=== PATIENT | female | born 1950 | race Caucasian/White ===

== ENCOUNTER 2020-12-15 11:54 | Day surgery (SDC) | payer MEDICARE, OTHER ==
[~2020-12-15] VITALS: Ht 149.9 cm; Wt 60.1 kg
[~2020-12-15 11:54] MED LIST: ALPR.5 PO; FLONASE ALLERG9.9 M2; GABA100 PO; LISI5 PO; OMEP20ER PO; OXYACE10 PO; PROP60 PO; SUCR1 PO; VENL150ER PO
[2020-12-15] MEDS ORDERED: Inderal60 MG PO (12:44)
--- NOTE | 2020-12-15 13:12 | NUR ---
12/15/20 1312 MANDIE KIM TETRACAINE DROP IN AT 1241 PLEDGETT IN AT 1249 ORDERED. 1311 L EYE DIALATING VERY WELL. LJ,RN
[2021-01-03] MEDS ORDERED: Prinivil10 MG PO (13:03)
== END 2020-12-15 14:25 | disposition home or self-care (01) ==
LOC: ORSCSDS 11:54
PROVIDERS: Ophthalmology
PROC: 08RK3JZ Replacement of Left Lens with Synthetic Substitute, Percutaneous Approach (ICD-10-PCS; principal; 2020-12-15 13:30)
DX: H25.12 Age-related nuclear cataract, left eye (principal); I10 Essential (primary) hypertension; G47.33 Obstructive sleep apnea (adult) (pediatric); K21.9 Gastro-esophageal reflux disease without esophagitis; Z79.899 Other long term (current) drug therapy
CPT/HCPCS: J2001; J2250; J3301; J7040; V2632

== ENCOUNTER 2021-01-12 11:44 | Day surgery (SDC) | payer MEDICARE, OTHER ==
[~2021-01-12] VITALS: Ht 149.9 cm; Wt 60.2 kg
[~2021-01-12 11:44] MED LIST changes: +Inderal60 MG PO; +Prinivil10 MG PO
--- NOTE | 2021-01-12 12:09 | NUR ---
01/12/21 1209 Ann-Marie Wise TETRACAINE APPLIED AT 1203 AND PLEDGET APPLIED AT 1206 TO RIGHT EYE
== END 2021-01-12 13:40 | disposition home or self-care (01) ==
LOC: ORSCSDS 11:44
PROVIDERS: Ophthalmology
PROC: 08RJ3JZ Replacement of Right Lens with Synthetic Substitute, Percutaneous Approach (ICD-10-PCS; principal; 2021-01-12 13:00)
DX: H25.11 Age-related nuclear cataract, right eye (principal); I10 Essential (primary) hypertension; J44.9 Chronic obstructive pulmonary disease, unspecified; K21.9 Gastro-esophageal reflux disease without esophagitis; Z99.81 Dependence on supplemental oxygen; G47.33 Obstructive sleep apnea (adult) (pediatric); F17.210 Nicotine dependence, cigarettes, uncomplicated; Z79.899 Other long term (current) drug therapy
CPT/HCPCS: J2001; J2250; J3010; J3301; J7040; V2632

== ENCOUNTER → 2021-04-19 | Outpatient (CLI) | payer MEDICARE, OTHER | END | disposition home or self-care (01) | LOC: LAB SHORT 14:45 | DX: N30.00 Acute cystitis without hematuria (principal) | CPT/HCPCS: 87086 ==

== ENCOUNTER 2021-06-19 13:15 | Observation (INO) | payer MEDICARE, OTHER ==
[~2021-06-19] VITALS: Ht 149.9 cm; Wt 61.6 kg
[~2021-06-19 13:15] MED LIST changes: +LISI20 PO; -Prinivil10 MG PO
[2021-06-19 13:51] LABS: BASOPHILS ABSOLUTE AUTO 0.03 K/mm3 (0.00-0.23); BASOPHILS PERCENT AUTO 0 % (0-2); EOSINOPHILS ABSOLUTE AUTO 0.06 K/mm3 (0.00-0.68); EOSINOPHILS PERCENT AUTO 1 % (0-6); Hematocrit 46.3 % (33.0-51.0); IMMATURE GRAN ABSOLUTE AUTO 0.03 K/mm3 (0.00-0.10); IMMATURE GRAN PERCENT AUTO 0 % (0-1); LYMPHOCYTES ABSOLUTE AUTO 2.66 K/mm3 (0.84-5.20); LYMPHOCYTES PERCENT AUTO 33 % (21-46); MONOCYTES ABSOLUTE AUTO 0.58 K/mm3 (0.16-1.47); MONOCYTES PERCENT AUTO 7 % (4-13); Mean Corpuscular HGB 31.1 pg (26.0-34.0); Mean Corpuscular HGB Conc 32.4 g/dL (31.5-36.5); Mean Corpuscular Volume 96 fL (80-100); Mean Platelet Volume 9.6 fL (9.1-12.4); NEUTROPHILS ABSOLUTE AUTO 4.83 K/mm3 (1.96-9.15); NEUTROPHILS PERCENT AUTO 59 % (41-73); Platelet Count 213 K/mm3 (150-400); RDW Coefficient Variation 14.3 % (11.7-14.2); RDW Standard Deviation 50.2 fL (35.1-46.3); Red Blood Cell Count 4.83 M/mm3 (3.80-5.20); White Blood Cell Count 8.19 K/mm3 (4.00-11.30)
[2021-06-19 14:13] LABS: Alanine Aminotransfer (ALT/SGP 18 U/L (12-78); Albumin, Blood 3.6 g/dL (3.4-5.0); Albumin/Globulin Ratio 0.9 (0.8-1.8); Alk Phos 70 U/L (50-136); Anion Gap 6 mmol/L (6-16); Aspartate Aminotrans (AST/SGOT 13 U/L (12-37); Bilirubin, Total 0.3 mg/dL (0.1-1.0); Blood Urea Nitrogen 17 mg/dL (8-24); Bun/Creatinine Ratio 20.5 (12.0-20.0); CO2, Blood 26 mmol/L (21-32); Calcium, Blood 9.2 mg/dL (8.5-10.1); Chloride, Blood 112 mmol/L (98-108); Creatinine, Blood 0.83 mg/dL (0.40-1.00); Globulin, Blood 3.8 g/dL (2.2-4.0); Glomerular Filtration Rate >60 (60-); Glucose, Blood 117 mg/dL (70-99); Potassium, Blood 4.3 mmol/L (3.5-5.5); Sodium, Blood 144 mmol/L (136-145); Total Protein, Blood 7.4 g/dL (6.4-8.2)
[2021-06-19 15:36] LABS: CHOL/HDL RATIO 2.7; Cholesterol 167 mg/dL (50-200); HDL Cholesterol 61 mg/dL (>39); LDL/HDL RATIO 0.9; Low Density Lipoprotein Chol 54 mg/dL (0-110); Triglycerides 260 mg/dL (30-160); Very Low Density Lipoprot Chol 52 mg/dL (6-32)
--- NOTE | 2021-06-19 18:07 | NUR ---
PT ARRIVED IN THE UNIT VIA STRETCHER FROM ED, REPORT RECEIVED FROM SEKOU EDUARDO. PT WAS ABLE TO STAND TRANSFER TO BED SBA. PT IS ALERT AND ORIENTED X4 AT BASELINE. HRR 110 SINUS TACH PER TELE. BP SYSTOLIC 170-180'S EXTRA 10MG DOSE ADMINSITERED, SATS ABOVE 95% ON RA, AFEBRILE. PT C/O 03/10 HEADACHE WAS GIVEN EXTRA [address] RILEY MADE AWARE. PT PUPILS DILATED FROM EYE DROPS MEDS FROM OPTHALMOLOGY OFFICE. PT NOW RESTING IN BED CALL LIGHTS IN REACH, CURRENTLY EATING DINNER. ABLE TO MAKE NEEDS KNOWN WILL REPORT TO ONCOMING SHIFT
--- NOTE | 2021-06-19 22:46 | NUR ---
ASSUMED CARE OF PATIENT AT 1900. A/OX4. PATIENT REPORTS H/A THAT SHE'S HAD SINCE THE ER. 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 ALL OTHER NEURO'S INTACT. MAINTAINS ABOVE 95% ON RA, LS CLEAR ON TOP AND DIM AT BASES. SINUS TACH ON MONITOR 110'S WITH STRONG PULSES. BP SYSTOLIC 150'S, NO REPORTS OF CP. WILL UPDATE CHANGES OCCUR.
[2021-06-20] MEDS ORDERED: ATOR40TA PO (13:12)
[2021-06-20] MEDS ORDERED: ASPI81CH PO (13:12)
--- NOTE | 2021-06-20 13:38 | NUR ---
DISCHARGE HOME PT A&O X4. PT REPORTS R EYE PERIPHERAL VISION STILL ABSENT, SAYING "I LOST IT" WHEN ATTEMPTING TO TRACK FINGER MOVING FROM LEFT TO RIGHT IN FRONT OF HER. PT UNABLE TO SEE FINGER WHEN TO THE RIGHT OF THE PT. PT C/O HEADACHE, IMPROVED W/ PRN IV TORADOL X1 THIS SHIFT. PT C/O NAUSEA W/ EPISODE OF EMESIS X2 THIS SHIFT, IMPROVED W/ PRN IV ZOFRAN THIS SHIFT & 1 PO REGLAN GIVEN JUST BEFORE DISCHARGE. PT VSS. PT TOLERATING AMBULATING IN HALLWAY W/ FWW & RN WELL. PT EAGER TO DISCHARGE HOME, REPORTING ABILITY TO STAY WITH FAMILY OR FAMILY STAY WITH HER. PT DAUGHTER TO UNIT TO TAKE PT HOME. DISCHARGE INSTRUCTIONS REVIEWED W/ PT. PIV REMOVED. PT TAKEN OUT IN WHEELCHAIR BY RN W/ PT DAUGHTER & BELONGINGS @ APPROX 1330.
--- NOTE | 2021-06-20 13:44 | NUR ---
Patient is sitting up in bed and alert. Pt tells me that she is improving but the whole medical event was scary and leaves a bit fearful about the future. We discuss her solid family support system of her 5 grown children and their families but she then shares about the deep pain of the divorce of her marriage of 40 yrs. She states that she is not hoahaoism but finds her drive and inspiration from family. I provide therapeutic listening and comapnioship, a calming presence and gentle marriage counselor. Patient responds well and shows signs of being comforted and having reduced stress.
== END 2021-06-20 13:52 | disposition home or self-care (01) ==
LOC: ER 13:15 → ERHOLD 13:16 → ER 13:16 → ERHOLD 13:17 → PCU 13:17 → ERHOLD 15:55 → PCU 16:47
PROVIDERS: Physician Assistant; ADMIT Family Medicine
DX: I63.9 Cerebral infarction, unspecified (principal); H53.8 Other visual disturbances; H53.47 Heteronymous bilateral field defects; R47.81 Slurred speech; H35.60 Retinal hemorrhage, unspecified eye; I16.1 Hypertensive emergency; I10 Essential (primary) hypertension; K21.9 Gastro-esophageal reflux disease without esophagitis; F32.A Depression, unspecified; F17.210 Nicotine dependence, cigarettes, uncomplicated; Z88.1 Allergy status to other antibiotic agents; Z66 Do not resuscitate
CPT/HCPCS: 36415; 70450; 70496; 70498; 80053; 80061; 84443; 85025; 85651; 86140; 93005; 93010; 93306; 96372; 96374; 96375; 96376; 99285-25; A9270; G0378; J0360; J1170; J1650; J1885; J2405; J3010; Q9967

== ENCOUNTER 2021-07-01 14:17 | Emergency (ER) | payer MEDICARE, OTHER ==
[~2021-07-01] VITALS: Ht 149.9 cm; Wt 59.0 kg
[~2021-07-01 14:17] MED LIST changes: +ASPI81CH PO; +ATOR40TA PO
[2021-07-01 15:25] LABS: BASOPHILS ABSOLUTE AUTO 0.05 K/mm3 (0.00-0.23); BASOPHILS PERCENT AUTO 0 % (0-2); EOSINOPHILS ABSOLUTE AUTO 0.01 K/mm3 (0.00-0.68); EOSINOPHILS PERCENT AUTO 0 % (0-6); Hematocrit 43.3 % (33.0-51.0); Hemoglobin 14.7 g/dL (11.5-16.0); IMMATURE GRAN ABSOLUTE AUTO 0.08 K/mm3 (0.00-0.10); IMMATURE GRAN PERCENT AUTO 1 % (0-1); LYMPHOCYTES ABSOLUTE AUTO 1.86 K/mm3 (0.84-5.20); LYMPHOCYTES PERCENT AUTO 11 % (21-46); MONOCYTES ABSOLUTE AUTO 0.96 K/mm3 (0.16-1.47); MONOCYTES PERCENT AUTO 6 % (4-13); Mean Corpuscular HGB 31.7 pg (26.0-34.0); Mean Corpuscular HGB Conc 33.9 g/dL (31.5-36.5); Mean Corpuscular Volume 94 fL (80-100); Mean Platelet Volume 9.6 fL (9.1-12.4); NEUTROPHILS ABSOLUTE AUTO 13.71 K/mm3 (1.96-9.15); NEUTROPHILS PERCENT AUTO 82 % (41-73); Platelet Count 244 K/mm3 (150-400); RDW Coefficient Variation 14.5 % (11.7-14.2); RDW Standard Deviation 49.8 fL (35.1-46.3); Red Blood Cell Count 4.63 M/mm3 (3.80-5.20); White Blood Cell Count 16.67 K/mm3 (4.00-11.30)
[2021-07-01 16:04] LABS: Influenza A, PCR NEGATIVE (NEGATIVE); Influenza B, PCR NEGATIVE (NEGATIVE); Resp Syncytial Virus, PCR NEGATIVE (NEGATIVE); SARS-Cov-2 (COVID-19) PCR, MMC NEGATIVE (NEGATIVE)
[2021-07-01 16:19] LABS: Alanine Aminotransfer (ALT/SGP 14 U/L (12-78); Albumin, Blood 3.6 g/dL (3.4-5.0); Albumin/Globulin Ratio 0.9 (0.8-1.8); Alk Phos 73 U/L (50-136); Anion Gap 7 mmol/L (6-16); Aspartate Aminotrans (AST/SGOT 15 U/L (12-37); Bilirubin, Total 0.7 mg/dL (0.1-1.0); Blood Urea Nitrogen 16 mg/dL (8-24); Bun/Creatinine Ratio 21.7 (12.0-20.0); CO2, Blood 22 mmol/L (21-32); Chloride, Blood 110 mmol/L (98-108); Creatinine, Blood 0.74 mg/dL (0.40-1.00); Globulin, Blood 3.9 g/dL (2.2-4.0); Glomerular Filtration Rate >60 (60-); Glucose, Blood 106 mg/dL (70-99); Potassium, Blood 3.8 mmol/L (3.5-5.5); Sodium, Blood 139 mmol/L (136-145); Total Protein, Blood 7.5 g/dL (6.4-8.2)
[2021-07-01] MEDS ORDERED: AUGMENTIN 875-1 EACH PO (16:53)
== END 2021-07-01 17:47 | disposition home or self-care (01) ==
LOC: ER 14:17
PROVIDERS: Physician Assistant
DX: J18.9 Pneumonia, unspecified organism (principal); I10 Essential (primary) hypertension; J44.9 Chronic obstructive pulmonary disease, unspecified; K21.9 Gastro-esophageal reflux disease without esophagitis; Z88.1 Allergy status to other antibiotic agents; Z79.82 Long term (current) use of aspirin; Z79.899 Other long term (current) drug therapy
CPT/HCPCS: 0241U; 36415; 71045; 80053; 85025; 96365; 99283-25; A9270; J2543

== ENCOUNTER 2022-01-15 21:17 | Observation (INO) | payer MEDICARE, OTHER ==
[~2022-01-15] VITALS: Ht 149.9 cm; Wt 63.4 kg
[~2022-01-15 21:17] MED LIST changes: +AUGMENTIN 875-1 EACH PO
[2022-01-15] MEDS ORDERED: OMEP20ER PO (21:35)
[2022-01-15 21:38] LABS: BASOPHILS ABSOLUTE AUTO 0.02 K/mm3 (0.00-0.23); BASOPHILS PERCENT AUTO 0 % (0-2); EOSINOPHILS ABSOLUTE AUTO 0.02 K/mm3 (0.00-0.68); EOSINOPHILS PERCENT AUTO 0 % (0-6); Hematocrit 43.5 % (33.0-51.0); Hemoglobin 14.5 g/dL (11.5-16.0); IMMATURE GRAN ABSOLUTE AUTO 0.05 K/mm3 (0.00-0.10); IMMATURE GRAN PERCENT AUTO 1 % (0-1); LYMPHOCYTES ABSOLUTE AUTO 0.27 K/mm3 (0.84-5.20); LYMPHOCYTES PERCENT AUTO 3 % (21-46); MONOCYTES ABSOLUTE AUTO 0.82 K/mm3 (0.16-1.47); MONOCYTES PERCENT AUTO 9 % (4-13); Mean Corpuscular HGB Conc 33.3 g/dL (31.5-36.5); Mean Corpuscular Volume 93 fL (80-100); Mean Platelet Volume 10.2 fL (9.1-12.4); NEUTROPHILS ABSOLUTE AUTO 7.55 K/mm3 (1.96-9.15); NEUTROPHILS PERCENT AUTO 87 % (41-73); Platelet Count 191 K/mm3 (150-400); RDW Coefficient Variation 14.4 % (11.7-14.2); RDW Standard Deviation 48.8 fL (35.1-46.3); Red Blood Cell Count 4.68 M/mm3 (3.80-5.20); White Blood Cell Count 8.73 K/mm3 (4.00-11.30)
[2022-01-15 21:52] LABS: Albumin, Blood 3.8 g/dL (3.4-5.0); Albumin/Globulin Ratio 1.1 (0.8-1.8); Bilirubin, Total 0.3 mg/dL (0.1-1.0); Bun/Creatinine Ratio 23.3 (12.0-20.0); Calcium, Blood 9.1 mg/dL (8.5-10.1); Creatinine, Blood 0.82 mg/dL (0.40-1.00); Globulin, Blood 3.6 g/dL (2.2-4.0); Total Protein, Blood 7.4 g/dL (6.4-8.2)
[2022-01-15 22:07] LABS: Influenza A, PCR NEGATIVE (NEGATIVE); Influenza B, PCR NEGATIVE (NEGATIVE); Resp Syncytial Virus, PCR NEGATIVE (NEGATIVE)
[2022-01-15 22:19] LABS: SARS-Cov-2 (COVID-19) PCR, MMC POSITIVE (NEGATIVE)
[2022-01-16 02:09] LABS: BASOPHILS ABSOLUTE AUTO 0.02 K/mm3 (0.00-0.23); BASOPHILS PERCENT AUTO 0 % (0-2); EOSINOPHILS ABSOLUTE AUTO 0.01 K/mm3 (0.00-0.68); EOSINOPHILS PERCENT AUTO 0 % (0-6); Hematocrit 40.8 % (33.0-51.0); Hemoglobin 13.5 g/dL (11.5-16.0); IMMATURE GRAN ABSOLUTE AUTO 0.03 K/mm3 (0.00-0.10); IMMATURE GRAN PERCENT AUTO 0 % (0-1); LYMPHOCYTES ABSOLUTE AUTO 0.23 K/mm3 (0.84-5.20); LYMPHOCYTES PERCENT AUTO 3 % (21-46); MONOCYTES ABSOLUTE AUTO 0.39 K/mm3 (0.16-1.47); MONOCYTES PERCENT AUTO 6 % (4-13); Mean Corpuscular HGB 31.3 pg (26.0-34.0); Mean Corpuscular HGB Conc 33.1 g/dL (31.5-36.5); Mean Corpuscular Volume 94 fL (80-100); Mean Platelet Volume 9.9 fL (9.1-12.4); NEUTROPHILS ABSOLUTE AUTO 6.37 K/mm3 (1.96-9.15); NEUTROPHILS PERCENT AUTO 90 % (41-73); Platelet Count 173 K/mm3 (150-400); RDW Coefficient Variation 14.5 % (11.7-14.2); RDW Standard Deviation 50.2 fL (35.1-46.3); Red Blood Cell Count 4.32 M/mm3 (3.80-5.20); White Blood Cell Count 7.05 K/mm3 (4.00-11.30)
[2022-01-16 02:23] LABS: Bun/Creatinine Ratio 23.3 (12.0-20.0); Calcium, Blood 8.3 mg/dL (8.5-10.1); Creatinine, Blood 0.77 mg/dL (0.40-1.00); Potassium, Blood 4.2 mmol/L (3.5-5.5)
--- NOTE | 2022-01-16 04:20 | NUR ---
ADMIT NOTE 0232 PT BROUGHT FROM THE ED. PT PLEASANT AND COOPERATIVE WITH CARE. PT INDEPENDENT IN ROOM. PT ON 4 L 02 WITH SATS IN THE 90'S. PT ALERT AND ORIENTED. PT COVID POSITIVE AND WEARS OXYGEN AT HOME NEEDED. PT ON TELEMETRY. CALL LIGHT IS WITHIN HER REACH.
[2022-01-16] MEDS ORDERED: CEFU500T30 PO (14:39)
[2022-01-16] MEDS ORDERED: PRED20 PO (14:40)
[2022-01-16] MEDS ORDERED: Nicoderm Cq1 EAC1 TOP (14:52)
--- NOTE | 2022-01-16 16:04 | NUR ---
DC HOME. PT DC'D TO HOME. NEW SCRIPTS FAXED TO PT'S PREFERRED PHARM, [facility]. DC INSTRUCTIONS GIVEN TO PT, PT VERBALIZED GOOD UNDERSTANDING. PCP FOLLOW UP APPT ARRANGED PRIOR TO DC. PT MADE AWARE. PIV DC'D WITH CATH TIP INTACT. SITE WITH NO REDNESS OR SWELLING. ALL PERSONAL BELONGINGS SENT WITH PT. PT'S GRAND DAUGHTER TO DRIVE PT HOME.
== END 2022-01-16 15:58 | disposition home or self-care (01) ==
LOC: ER 21:17 → MEDS 21:18 → ER 01-16 01:55 → MEDS 01-16 01:55
PROVIDERS: Student in an Organized Health Care Education/Training Program; ADMIT Family Medicine
DX: U07.1 COVID-19 (principal); J96.21 Acute and chronic respiratory failure with hypoxia; J44.1 Chronic obstructive pulmonary disease with (acute) exacerbation; J44.0 Chronic obstructive pulmonary disease with (acute) lower respiratory infection; J18.9 Pneumonia, unspecified organism; I10 Essential (primary) hypertension; F17.210 Nicotine dependence, cigarettes, uncomplicated; Z88.1 Allergy status to other antibiotic agents; K21.9 Gastro-esophageal reflux disease without esophagitis; R00.0 Tachycardia, unspecified; Z66 Do not resuscitate; Z86.73 Personal history of transient ischemic attack (TIA), and cerebral infarction without residual deficits
CPT/HCPCS: 0241U; 36415; 71045; 80048; 80053; 83605; 84145; 85025; 93005; 93010; 96365; 96375; 99285-25; A9270; G0378; J0248; J0696; J1100; J1650; J1885; J2765; J7030; J7050

== ENCOUNTER 2022-10-20 12:09 | Emergency (ER) | payer MEDICARE, OTHER ==
[~2022-10-20] VITALS: Ht 165.1 cm; Wt 63.5 kg
[~2022-10-20 12:09] MED LIST changes: +CEFU500T30 PO; +Nicoderm Cq1 EAC1 TOP; +PRED20 PO
[2022-10-20 13:29] LABS: BASOPHILS ABSOLUTE AUTO 0.04 K/mm3 (0.00-0.23); BASOPHILS PERCENT AUTO 0 % (0-2); EOSINOPHILS ABSOLUTE AUTO 0.12 K/mm3 (0.00-0.68); EOSINOPHILS PERCENT AUTO 1 % (0-6); Hematocrit 46.4 % (33.0-51.0); Hemoglobin 15.7 g/dL (11.5-16.0); IMMATURE GRAN ABSOLUTE AUTO 0.03 K/mm3 (0.00-0.10); IMMATURE GRAN PERCENT AUTO 0 % (0-1); LYMPHOCYTES ABSOLUTE AUTO 1.43 K/mm3 (0.84-5.20); LYMPHOCYTES PERCENT AUTO 15 % (21-46); MONOCYTES ABSOLUTE AUTO 0.63 K/mm3 (0.16-1.47); MONOCYTES PERCENT AUTO 7 % (4-13); Mean Corpuscular HGB 31.5 pg (26.0-34.0); Mean Corpuscular HGB Conc 33.8 g/dL (31.5-36.5); Mean Corpuscular Volume 93 fL (80-100); Mean Platelet Volume 10.3 fL (9.1-12.4); NEUTROPHILS ABSOLUTE AUTO 7.19 K/mm3 (1.96-9.15); NEUTROPHILS PERCENT AUTO 76 % (41-73); Platelet Count 229 K/mm3 (150-400); Red Blood Cell Count 4.99 M/mm3 (3.80-5.20); White Blood Cell Count 9.44 K/mm3 (4.00-11.30)
[2022-10-20 13:44] LABS: Albumin, Blood 3.9 g/dL (3.4-5.0); Bilirubin, Total 0.4 mg/dL (0.1-1.0); Bun/Creatinine Ratio 25.3 (12.0-20.0); Calcium, Blood 9.2 mg/dL (8.5-10.1); Creatinine, Blood 0.71 mg/dL (0.40-1.00); Globulin, Blood 3.8 g/dL (2.2-4.0); Potassium, Blood 3.9 mmol/L (3.5-5.5); Total Protein, Blood 7.7 g/dL (6.4-8.2)
[2022-10-20 14:15] VITALS: BP 187/95
== END 2022-10-20 14:24 | disposition home or self-care (01) ==
LOC: ER 12:09
PROVIDERS: Student in an Organized Health Care Education/Training Program
DX: I63.9 Cerebral infarction, unspecified (principal); R47.01 Aphasia; R29.810 Facial weakness; G81.91 Hemiplegia, unspecified affecting right dominant side; I69.322 Dysarthria following cerebral infarction; R29.704 NIHSS score 4; I10 Essential (primary) hypertension; J44.9 Chronic obstructive pulmonary disease, unspecified; K21.9 Gastro-esophageal reflux disease without esophagitis; F17.210 Nicotine dependence, cigarettes, uncomplicated; Z88.1 Allergy status to other antibiotic agents; Z79.82 Long term (current) use of aspirin; Z79.899 Other long term (current) drug therapy
CPT/HCPCS: 36415; 70450; 70496; 70498; 80053; 82947; 85025; 93005; 93010; 99285-25; A9270; Q9967

== ENCOUNTER 2024-01-25 10:19 | Emergency (ER) | payer MEDICARE, OTHER ==
[~2024-01-25] VITALS: Ht 149.9 cm; Wt 54.4 kg
[2024-01-25 11:48] LABS: Influenza A, PCR NEGATIVE (NEGATIVE); Influenza B, PCR NEGATIVE (NEGATIVE); Resp Syncytial Virus, PCR NEGATIVE (NEGATIVE)
[2024-01-25 12:15] LABS: SARS-Cov-2 (COVID-19) PCR, MMC POSITIVE (NEGATIVE)
[2024-01-25] MEDS ORDERED: Acetaminophen 325 MG TABLET PO ONE (12:30)
[2024-01-25 12:35] VITALS: BP 152/63
== END 2024-01-25 12:40 | disposition home or self-care (01) ==
LOC: ER 10:19
PROVIDERS: Emergency Medicine
DX: U07.1 COVID-19 (principal); Z88.1 Allergy status to other antibiotic agents; Z79.899 Other long term (current) drug therapy; Z79.52 Long term (current) use of systemic steroids; Z79.82 Long term (current) use of aspirin; I10 Essential (primary) hypertension; J44.9 Chronic obstructive pulmonary disease, unspecified; E78.5 Hyperlipidemia, unspecified; F17.210 Nicotine dependence, cigarettes, uncomplicated
CPT/HCPCS: 0241U; 71046; 99283-25; A9270

== ENCOUNTER → 2024-06-16 | Outpatient (CLI) | payer MEDICARE, OTHER ==
[2024-06-16 14:37] LABS: BASOPHILS ABSOLUTE AUTO 0.03 K/mm3 (0.00-0.23); BASOPHILS PERCENT AUTO 0 % (0-2); EOSINOPHILS ABSOLUTE AUTO 0.05 K/mm3 (0.00-0.68); EOSINOPHILS PERCENT AUTO 1 % (0-6); Hematocrit 31.9 % (33.0-51.0); Hemoglobin 9.8 g/dL (11.5-16.0); IMMATURE GRAN ABSOLUTE AUTO 0.05 K/mm3 (0.00-0.10); IMMATURE GRAN PERCENT AUTO 1 % (0-1); LYMPHOCYTES ABSOLUTE AUTO 1.96 K/mm3 (0.84-5.20); LYMPHOCYTES PERCENT AUTO 19 % (21-46); MONOCYTES ABSOLUTE AUTO 0.76 K/mm3 (0.16-1.47); MONOCYTES PERCENT AUTO 7 % (4-13); Mean Corpuscular HGB 25.1 pg (26.0-34.0); Mean Corpuscular HGB Conc 30.7 g/dL (31.5-36.5); Mean Corpuscular Volume 82 fL (80-100); Mean Platelet Volume 9.4 fL (9.1-12.4); NEUTROPHILS ABSOLUTE AUTO 7.71 K/mm3 (1.96-9.15); NEUTROPHILS PERCENT AUTO 73 % (41-73); Platelet Count 288 K/mm3 (150-400); RDW Coefficient Variation 18.7 % (11.7-14.2); RDW Standard Deviation 55.4 fL (35.1-46.3); White Blood Cell Count 10.56 K/mm3 (4.00-11.30)
[2024-06-16 15:01] LABS: Albumin, Blood 3.8 g/dL (3.4-5.0); Bilirubin, Total 0.4 mg/dL (0.1-1.0); Bun/Creatinine Ratio 25.3 (12.0-20.0); Calcium, Blood 9.2 mg/dL (8.5-10.1); Creatinine, Blood 0.83 mg/dL (0.40-1.00); Globulin, Blood 3.9 g/dL (2.2-4.0); Potassium, Blood 3.7 mmol/L (3.5-5.5); Total Protein, Blood 7.7 g/dL (6.4-8.2)
[2024-06-16 18:53] LABS: Percent Saturation 7.9 % (15.0-50.0)
== END ==
LOC: LAB SHORT 14:33 → LAB 14:33
PROVIDERS: Chiropractor
DX: R10.13 Epigastric pain (principal); D64.9 Anemia, unspecified
CPT/HCPCS: 80053; 82728; 83540; 83550; 83690; 85025

== ENCOUNTER → 2024-07-20 | Outpatient (CLI) | payer MEDICARE, OTHER ==
[2024-07-20 14:39] LABS: BASOPHILS ABSOLUTE AUTO 0.02 K/mm3 (0.00-0.23); BASOPHILS PERCENT AUTO 0 % (0-2); EOSINOPHILS ABSOLUTE AUTO 0.01 K/mm3 (0.00-0.68); EOSINOPHILS PERCENT AUTO 0 % (0-6); Hematocrit 32.2 % (33.0-51.0); Hemoglobin 10.1 g/dL (11.5-16.0); IMMATURE GRAN ABSOLUTE AUTO 0.09 K/mm3 (0.00-0.10); IMMATURE GRAN PERCENT AUTO 1 % (0-1); LYMPHOCYTES ABSOLUTE AUTO 1.38 K/mm3 (0.84-5.20); LYMPHOCYTES PERCENT AUTO 8 % (21-46); MONOCYTES ABSOLUTE AUTO 0.88 K/mm3 (0.16-1.47); MONOCYTES PERCENT AUTO 5 % (4-13); Mean Corpuscular HGB 24.9 pg (26.0-34.0); Mean Corpuscular HGB Conc 31.4 g/dL (31.5-36.5); Mean Corpuscular Volume 80 fL (80-100); Mean Platelet Volume 9.8 fL (9.1-12.4); NEUTROPHILS ABSOLUTE AUTO 15.59 K/mm3 (1.96-9.15); NEUTROPHILS PERCENT AUTO 87 % (41-73); Platelet Count 302 K/mm3 (150-400); RDW Coefficient Variation 21.4 % (11.7-14.2); RDW Standard Deviation 60.4 fL (35.1-46.3); Red Blood Cell Count 4.05 M/mm3 (3.80-5.20); White Blood Cell Count 17.97 K/mm3 (4.00-11.30)
[2024-07-20 14:52] LABS: Albumin, Blood 3.7 g/dL (3.4-5.0); Albumin/Globulin Ratio 0.9 (0.8-1.8); Bilirubin, Total 0.6 mg/dL (0.1-1.0); Calcium, Blood 9.4 mg/dL (8.5-10.1); Creatinine, Blood 1.06 mg/dL (0.40-1.00); Globulin, Blood 4.2 g/dL (2.2-4.0); Potassium, Blood 4.1 mmol/L (3.5-5.5); Total Protein, Blood 7.9 g/dL (6.4-8.2)
== END ==
LOC: LAB 14:35 → LAB SHORT 14:35
PROVIDERS: Family Medicine
DX: R10.84 Generalized abdominal pain (principal)
CPT/HCPCS: 80053; 83690; 85025

== ENCOUNTER 2024-09-24 16:06 | Observation (INO) | payer MEDICARE, OTHER ==
[~2024-09-24] VITALS: Ht 149.9 cm; Wt 52.6 kg
[~2024-09-24 16:06] MED LIST changes: -ANORO ELLIPTA1 EAC1 INH; -LABE100 PO; -NICODERM CQ TOP
[2024-09-24] MEDS ORDERED: Acetaminophen 500 MG Tab PO ONE (16:15)
[2024-09-24] MEDS ORDERED: Aspirin 81 MG Chew PO ONE (16:15)
[2024-09-24] MEDS ORDERED: Dose Adjust by Pharmacy XX STA (16:24)
[2024-09-24] MEDS ORDERED: Heparin Sodium 5000 Units/ML 1ML MDV IV ONE (16:25)
[2024-09-24] MEDS ORDERED: Heparin Sodium,Porcine/0.5 NS 500 ML IV SCH (16:25)
[2024-09-24 16:40] LABS: BASOPHILS ABSOLUTE AUTO 0.06 K/mm3 (0.00-0.23); BASOPHILS PERCENT AUTO 1 % (0-2); EOSINOPHILS ABSOLUTE AUTO 0.06 K/mm3 (0.00-0.68); EOSINOPHILS PERCENT AUTO 1 % (0-6); Hematocrit 39.2 % (33.0-51.0); Hemoglobin 12.4 g/dL (11.5-16.0); IMMATURE GRAN ABSOLUTE AUTO 0.03 K/mm3 (0.00-0.10); IMMATURE GRAN PERCENT AUTO 0 % (0-1); LYMPHOCYTES ABSOLUTE AUTO 2.47 K/mm3 (0.84-5.20); LYMPHOCYTES PERCENT AUTO 27 % (21-46); MONOCYTES ABSOLUTE AUTO 0.67 K/mm3 (0.16-1.47); MONOCYTES PERCENT AUTO 7 % (4-13); Mean Corpuscular HGB 27.2 pg (26.0-34.0); Mean Corpuscular HGB Conc 31.6 g/dL (31.5-36.5); Mean Corpuscular Volume 86 fL (80-100); Mean Platelet Volume 10.1 fL (9.1-12.4); NEUTROPHILS ABSOLUTE AUTO 5.89 K/mm3 (1.96-9.15); NEUTROPHILS PERCENT AUTO 64 % (41-73); Platelet Count 233 K/mm3 (150-400); RDW Coefficient Variation 19.9 % (11.7-14.2); RDW Standard Deviation 62.4 fL (35.1-46.3); Red Blood Cell Count 4.56 M/mm3 (3.80-5.20); White Blood Cell Count 9.18 K/mm3 (4.00-11.30)
[2024-09-24 17:00] LABS: Anti-Xa UFH, PHA Monitoring <0.10 IU/mL; International Normalized Ratio 0.94; Prothrombin Time Results 10.1 Sec (9.7-11.5)
[2024-09-24 17:27] LABS: Albumin, Blood 3.9 g/dL (3.4-5.0); Albumin/Globulin Ratio 1.1 (0.8-1.8); Bilirubin, Total 0.4 mg/dL (0.1-1.0); Bun/Creatinine Ratio 19.8 (12.0-20.0); Calcium, Blood 8.8 mg/dL (8.5-10.1); Creatinine, Blood 0.76 mg/dL (0.40-1.00); Globulin, Blood 3.6 g/dL (2.2-4.0); Magnesium, Blood 2.1 mg/dL (1.6-2.4); Potassium, Blood 3.6 mmol/L (3.5-5.5); Total Protein, Blood 7.5 g/dL (6.4-8.2)
[2024-09-24] MEDS ORDERED: Labetalol HCL 5 MG/ML 4ML Injection (Single Dose) IV PRN (21:15)
[2024-09-24] MEDS ORDERED: HydrALAZINE HCl 20 MG / ML 1ML Vial IV PRN (21:20)
[2024-09-24] MEDS ORDERED: Albuterol 2.5 MG/3 ML VIAL INH PRN (21:20)
[2024-09-24] MEDS ORDERED: HydrALAZINE HCl 25 MG Tab PO PRN (21:20)
[2024-09-24 21:39] VITALS: BP 224/83
[2024-09-24] MEDS ORDERED: NS 1,000 ML IV ONE (22:00)
[2024-09-24] MEDS ORDERED: Labetalol HCL 5 MG/ML 4ML Injection (Single Dose) IV ONE (22:00)
[2024-09-24 22:03] VITALS: BP 127/97
--- NOTE | 2024-09-24 22:18 | NUR ---
ADMISSION PATIENT ARRIVES TO PCU 17. ALERT, ORIENTED x4, ABLE TO MAKE NEEDS KNOWN. REPORTS SOME FORGETFULNESS. PATIENT HYPERTENSIVE ON ADMISSION, MEDICATED PER EMAR. TELE READING SR. ON BASELINE 3L NC WITH SPO2 >90%. PATIENT AMBULATED INTO BATHROOM, ADEQUATE OUTPUT. HEPARIN DCd ON ADMISSION. PATIENT ORIENTED TO ROOM AND CALL LIGHT SYSTEM.
[2024-09-24 23:30] VITALS: BP 166/69
[2024-09-24] MEDS ORDERED: Melatonin 5 MG Tablet PO PRN (23:40)
[2024-09-25] VITALS (13 sets, daily range): BP systolic 120–190; BP diastolic 48–95
--- NOTE | 2024-09-25 05:23 | NUR ---
SHIFT SUMMARY PATIENT ALERT, ORIENTED x4. ABLE TO MAKE NEEDS KNOWN TO STAFF. PATIENT HYPERTENSIVE DURING THE NIGHT, MEDICATED PER EMAR FOR HYPERTENSION. TELE READING SR. PATIENT ON BASELINE 3L NC WITH SPO2 >90%. PATIENT AMBULATING TO BATHROOM, ADEQUATE OUTPUT. TURNING SELF IN BED INDEPENDENTLY. NO OTHER CHANGES DURING THE NIGHT, WILL REPORT TO DAY SHIFT RN.
[2024-09-25] MEDS ORDERED: Omeprazole 20 MG CapCR PO SCH (06:00)
--- NOTE | 2024-09-25 07:59 | NUR ---
AM NOTE PT ALERT, ORIENTED X4; FORGETFUL AT TIMES; CALM AND COOPERATIVE WITH CARE. PT RESTING IN BED, UP WITH SBA TO BATHROOM. PT REPORTING HEADACHE AND ALL OVER BODY ACHE. DENIES CHEST PAIN/PRESSURE, NAUSEA, OR NUMB/TINGLING. NOTED TREMOR WITH MOVEMENT, NONE NOTED AT REST, PT STATES IT IS NOTE NEW BUT HAS NOTE BEEN SEEN BY PCP REGARDING IT. TELE SINUS 70, BP ELEVATED, MEDICATED WITH SCHEDULE LISINIPRIL, WILL RECHECK BP AND USE PRNS IF NEEDED. SPO2 >90% ON 3L, USES FOR JUST SLEEPING AT HOME. ABD SOFT, NONTENDER, +BT T/O. OTHER VSS. NO OTHER ACUTE CHANGES NOTED. WILL CONTINUE TO MONITOR.
[2024-09-25] MEDS ORDERED: Lisinopril 20 MG Tab PO SCH (09:00)
[2024-09-25] MEDS ORDERED: Atorvastatin 40 MG Tab PO SCH (09:00)
[2024-09-25] MEDS ORDERED: ANORO ELLIPTA1 EAC1 INH (11:10)
[2024-09-25] MEDS ORDERED: ANORO ELLIPTA 62.5-25 MCG INH INH SCH (11:15)
[2024-09-25] MEDS ORDERED: Acetaminophen 325 MG TABLET PO PRN (11:15)
[2024-09-25] MEDS ORDERED: Labetalol HCL 100 MG TAB PO SCH ×2 (15:45→21:00)
[2024-09-25] MEDS ORDERED: Nicotine 14 MG PATCH TOP SCH (16:00)
[2024-09-25] MEDS ORDERED: Venlafaxine HCl 75 MG CapCR PO SCH (16:00)
--- NOTE | 2024-09-25 17:44 | NUR ---
RN REQUESTED NECK PILLOW FOR PATIENT. OBTAINED NECK PILLOW AND DELIVERED TO PT. SHE WAS APPRECIATIVE OF HAVING THE PILLOW AND PLACED AROUND HER NECK AND STATED IT HELPED.
--- NOTE | 2024-09-25 17:58 | NUR ---
Shift Summary Pt reporting neck pain, states she has had surgery on it before, attempted heating pad and neck pillow. PT NPO after breakfast for first postion of stress test. Plans for second portion tomorrow am [id number]. No caffiene now and NPO after midnight. BP continued to be elevated this afternoon, updated Dr Crystal, new order to start PO labatolol now. Other vss. No other acute changes noted.
[2024-09-25] MEDS ORDERED: Promethazine HCl 25 MG Tab PO PRN (22:06)
[2024-09-25] MEDS ORDERED: Ketorolac Tromethamine 30mg Vial IV ONE (23:00)
--- NOTE | 2024-09-26 01:53 | NUR ---
SHIFT SUMMARY NEURO: A/OX4. PERRLA. EQUAL STRENGTH THROUGHOUT. C/O SEVERE HEADACHE. PT GIVEN YLENOL AND ONE TIME DOSE OF TORDOL. CARDIAC: HTN WITH SYSTOLIC 190'S. IV PRN'S GIVEN. LUNGS: ON BASELINE O2 GI/: C/O NAUSEA, PHENERGAN GIVEN.
[2024-09-26 04:47] VITALS: BP 109/52
[2024-09-26 05:59] LABS: Triiodothyronine, Free 2.23 pg/mL (2.18-3.98)
[2024-09-26 07:43] VITALS: BP 137/75
[2024-09-26] MEDS ORDERED: Venlafaxine HCl 75 MG CapCR PO SCH (09:00)
[2024-09-26] MEDS ORDERED: Aspirin 81 MG Chew PO SCH (09:00)
[2024-09-26] MEDS ORDERED: Nicotine 14 MG PATCH TOP SCH (09:00)
[2024-09-26] MEDS ORDERED: Fluticasone 0.05% Nasal Spray SCH (09:00)
[2024-09-26] MEDS ORDERED: Regadenoson 0.4 MG/5 ML SYRINGE ONE (09:04)
[2024-09-26] MEDS ORDERED: Aminophylline 250MG / 10ML 10 ML Vial ONE (09:04)
--- NOTE | 2024-09-26 10:24 | NUR ---
am note this rn assumed care at 0700. vital signs stable. tele sinus rhythm 72. patient is alert and oriented to person, place, self, the month and year. patient mentions that she has recently been forgetful of names/dates/day of the week/where items are. patient denies pain, chest pain/pressure or shortness of breath. patient lung sounds clear. see shift assessment for further detials. patient had second part of stress test, the stress portion, this morning. awaiting to go for the imaging portion. this rn spoke with daughter and updated her this morning.
[2024-09-26 12:24] VITALS: BP 118/83
--- NOTE | 2024-09-26 13:24 | NUR ---
update patient with respiratory care doing home oxygen eval.
[2024-09-26] MEDS ORDERED: LABE100 PO (16:27)
[2024-09-26] MEDS ORDERED: NICODERM CQ TOP (16:28)
[2024-09-26 17:11] VITALS: BP 151/74
--- NOTE | 2024-09-26 17:55 | NUR ---
DISCHARGE this rn went over discharge instructions with the patient and patient family member. patient and patient family member verbalized understanding. patient left with all belongings and in no distress. patient medications faxed to [facility], but due to pharmacy closed on saturday and not getting medications; medications faxed to [email or web address]. patient left in no distress using home portable home oxygen tank.
== END 2024-09-26 17:51 | disposition home or self-care (01) ==
LOC: ER 16:06 → PCU 16:07 → ERHOLD 16:07 → PCU 21:27
PROVIDERS: Family Medicine; Student in an Organized Health Care Education/Training Program; ADMIT Student in an Organized Health Care Education/Training Program
DX: I16.0 Hypertensive urgency (principal); I21.4 Non-ST elevation (NSTEMI) myocardial infarction; R07.89 Other chest pain; F32.9 Major depressive disorder, single episode, unspecified; K21.9 Gastro-esophageal reflux disease without esophagitis; I10 Essential (primary) hypertension; G47.30 Sleep apnea, unspecified; F17.210 Nicotine dependence, cigarettes, uncomplicated; J44.9 Chronic obstructive pulmonary disease, unspecified; Z66 Do not resuscitate; Z88.8 Allergy status to other drugs, medicaments and biological substances; Z79.899 Other long term (current) drug therapy; Z86.73 Personal history of transient ischemic attack (TIA), and cerebral infarction without residual deficits
CPT/HCPCS: 36415; 70450; 71045; 71275; 74175; 78452; 80053; 82947; 83735; 84439; 84443; 84481; 84484; 85025; 85379; 85520; 85610; 93005; 93010; 93017; 93306; 94640; 94660; 94664; 94761; 94762; 96365; 96366; 96375; 96376; 99285-25; A9270; A9500; G0378; J0280; J0360; J1644; J1885; J2785; J7030; Q9967

== ENCOUNTER → 2024-09-24 | Outpatient (CLI) | payer MEDICARE, OTHER ==
[~2024-09-24] MED LIST changes: +ANORO ELLIPTA1 EAC1 INH; +LABE100 PO; +NICODERM CQ TOP
[2024-09-24 14:48] LABS: BASOPHILS ABSOLUTE AUTO 0.04 K/mm3 (0.00-0.23); BASOPHILS PERCENT AUTO 1 % (0-2); EOSINOPHILS ABSOLUTE AUTO 0.06 K/mm3 (0.00-0.68); EOSINOPHILS PERCENT AUTO 1 % (0-6); Hematocrit 38.2 % (33.0-51.0); IMMATURE GRAN ABSOLUTE AUTO 0.01 K/mm3 (0.00-0.10); IMMATURE GRAN PERCENT AUTO 0 % (0-1); LYMPHOCYTES ABSOLUTE AUTO 2.19 K/mm3 (0.84-5.20); LYMPHOCYTES PERCENT AUTO 33 % (21-46); MONOCYTES ABSOLUTE AUTO 0.55 K/mm3 (0.16-1.47); MONOCYTES PERCENT AUTO 8 % (4-13); Mean Corpuscular HGB 26.7 pg (26.0-34.0); Mean Corpuscular HGB Conc 31.4 g/dL (31.5-36.5); Mean Corpuscular Volume 85 fL (80-100); Mean Platelet Volume 10.1 fL (9.1-12.4); NEUTROPHILS ABSOLUTE AUTO 3.82 K/mm3 (1.96-9.15); NEUTROPHILS PERCENT AUTO 57 % (41-73); Platelet Count 209 K/mm3 (150-400); RDW Coefficient Variation 19.9 % (11.7-14.2); Red Blood Cell Count 4.49 M/mm3 (3.80-5.20); White Blood Cell Count 6.67 K/mm3 (4.00-11.30)
[2024-09-24 14:54] LABS: Albumin, Blood 3.7 g/dL (3.4-5.0); Bilirubin, Total 0.4 mg/dL (0.1-1.0); Bun/Creatinine Ratio 19.1 (12.0-20.0); Creatinine, Blood 0.89 mg/dL (0.40-1.00); Globulin, Blood 3.7 g/dL (2.2-4.0); Potassium, Blood 3.6 mmol/L (3.5-5.5); Total Protein, Blood 7.4 g/dL (6.4-8.2)
== END | disposition home or self-care (01) ==
LOC: LAB 14:41 → LAB SHORT 14:41
PROVIDERS: Family Medicine
DX: R07.9 Chest pain, unspecified (principal)
CPT/HCPCS: 80053; 84484; 85025; 85379

== ENCOUNTER 2024-11-16 11:06 | Emergency (ER) | payer MEDICARE, OTHER ==
[~2024-11-16] VITALS: Ht 149.9 cm; Wt 45.4 kg
[~2024-11-16 11:06] MED LIST changes: +ANORO ELLIPTA1 EAC1 INH; +LABE100 PO; +NICODERM CQ TOP
[2024-11-16 11:40] LABS: BASOPHILS ABSOLUTE AUTO 0.02 K/mm3 (0.00-0.23); BASOPHILS PERCENT AUTO 0 % (0-2); EOSINOPHILS PERCENT AUTO 1 % (0-6); Hematocrit 30.2 % (33.0-51.0); Hemoglobin 9.4 g/dL (11.5-16.0); IMMATURE GRAN ABSOLUTE AUTO 0.03 K/mm3 (0.00-0.10); IMMATURE GRAN PERCENT AUTO 0 % (0-1); LYMPHOCYTES ABSOLUTE AUTO 1.31 K/mm3 (0.84-5.20); LYMPHOCYTES PERCENT AUTO 16 % (21-46); MONOCYTES ABSOLUTE AUTO 0.62 K/mm3 (0.16-1.47); MONOCYTES PERCENT AUTO 7 % (4-13); Mean Corpuscular HGB 26.3 pg (26.0-34.0); Mean Corpuscular HGB Conc 31.1 g/dL (31.5-36.5); Mean Corpuscular Volume 85 fL (80-100); Mean Platelet Volume 9.3 fL (9.1-12.4); NEUTROPHILS ABSOLUTE AUTO 6.32 K/mm3 (1.96-9.15); NEUTROPHILS PERCENT AUTO 75 % (41-73); Platelet Count 355 K/mm3 (150-400); RDW Coefficient Variation 16.7 % (11.7-14.2); RDW Standard Deviation 52.1 fL (35.1-46.3); Red Blood Cell Count 3.57 M/mm3 (3.80-5.20)
[2024-11-16 12:08] LABS: Albumin, Blood 3.6 g/dL (3.4-5.0); Albumin/Globulin Ratio 0.8 (0.8-1.8); Bilirubin, Total 0.2 mg/dL (0.1-1.0); Bun/Creatinine Ratio 25.6 (12.0-20.0); Calcium, Blood 9.3 mg/dL (8.5-10.1); Creatinine, Blood 0.7 mg/dL (0.40-1.00); Globulin, Blood 4.3 g/dL (2.2-4.0); Potassium, Blood 4.1 mmol/L (3.5-5.5); Total Protein, Blood 7.9 g/dL (6.4-8.2)
[2024-11-16 12:26] LABS: Influenza A, PCR NEGATIVE (NEGATIVE); Influenza B, PCR NEGATIVE (NEGATIVE); Resp Syncytial Virus, PCR NEGATIVE (NEGATIVE); SARS-Cov-2 (COVID-19) PCR, MMC NEGATIVE (NEGATIVE)
[2024-11-16 12:48] LABS: Source, Urine Clean Catch
[2024-11-16 12:53] LABS: Appearance, Urine Clear (Clear); Bilirubin, Urine Neg (Neg); Blood, Urine Neg (Neg); Color, Urine Yellow (P-Yellow); Glucose Qualitative, Urine Neg (Neg); Ketones, Urine 1+ (Neg); Leukocyte Esterase, Urine 1+ (Neg); Nitrite, Urine Neg (Neg); Protein, Urine 2+ (Neg); Specific Gravity, Urine 1.025 (1.003-1.022); Urobilinogen, Urine NORM (Normal)
[2024-11-16 13:01] LABS: Bacteria Many /hpf; Mucus Mod (0-Heavy); Red Blood Cells, Urine 0-2 /hpf (0-2); Squamous Epithelial Cells Many /hpf (Few)
[2024-11-16 14:00] VITALS: BP 179/95
[2024-11-16] MEDS ORDERED: Ondansetron HCl 2 MG / ML 2ML Vial IV ONE (14:35)
[2024-11-16] MEDS ORDERED: ONDA4ODT MM (14:35)
== END 2024-11-16 14:55 | disposition home or self-care (01) ==
LOC: ER 11:06
PROVIDERS: Student in an Organized Health Care Education/Training Program
DX: E86.0 Dehydration (principal); R06.02 Shortness of breath; I10 Essential (primary) hypertension; J44.9 Chronic obstructive pulmonary disease, unspecified; I69.398 Other sequelae of cerebral infarction; H53.461 Homonymous bilateral field defects, right side; F17.210 Nicotine dependence, cigarettes, uncomplicated; Z91.199 Patient's noncompliance with other medical treatment and regimen due to unspecified reason; Z99.81 Dependence on supplemental oxygen; Z86.16 Personal history of COVID-19; Z79.899 Other long term (current) drug therapy
CPT/HCPCS: 0241U; 71046; 80053; 81001; 84484; 85025; 87086; 93005; 93010; 96374; 99285-25; J2405

== ENCOUNTER 2024-12-27 13:59 | Emergency (ER) | payer MEDICARE, OTHER ==
[~2024-12-27] VITALS: Ht 149.9 cm; Wt 5.0 kg
[~2024-12-27 13:59] MED LIST changes: +ALBU8HFA2 INH; +ANORO ELLIPTA1 EACH INH; +ASPIR 8181 M1 PO; +ATORVASTATIN CA80 M1 PO; +BUSPIRONE HCL30 M1 PO; +CLOP75 PO; +DALIRESP500 MCG PO; +EFFEXOR XR150 MG PO; +ENSURE HIGH PROTEIN PO; +FEROSUL325 M1 PO; +Flonase 0.05% Nasal; +LABE200 PO; +NITR.4SL PO; +ONDA4ODT MM; +TRAZ100 PO; +ZESTRIL40 M1 PO
[2024-12-27 15:19] LABS: BASOPHILS ABSOLUTE AUTO 0.03 K/mm3 (0.00-0.23); BASOPHILS PERCENT AUTO 0 % (0-2); EOSINOPHILS ABSOLUTE AUTO 0.09 K/mm3 (0.00-0.68); EOSINOPHILS PERCENT AUTO 1 % (0-6); Hematocrit 27.4 % (33.0-51.0); Hemoglobin 8.1 g/dL (11.5-16.0); IMMATURE GRAN ABSOLUTE AUTO 0.03 K/mm3 (0.00-0.10); IMMATURE GRAN PERCENT AUTO 0 % (0-1); LYMPHOCYTES ABSOLUTE AUTO 1.51 K/mm3 (0.84-5.20); LYMPHOCYTES PERCENT AUTO 16 % (21-46); MONOCYTES ABSOLUTE AUTO 0.64 K/mm3 (0.16-1.47); MONOCYTES PERCENT AUTO 7 % (4-13); Mean Corpuscular HGB 24.7 pg (26.0-34.0); Mean Corpuscular HGB Conc 29.6 g/dL (31.5-36.5); Mean Corpuscular Volume 84 fL (80-100); Mean Platelet Volume 9.9 fL (9.1-12.4); NEUTROPHILS ABSOLUTE AUTO 7.26 K/mm3 (1.96-9.15); NEUTROPHILS PERCENT AUTO 76 % (41-73); Platelet Count 280 K/mm3 (150-400); RDW Coefficient Variation 19.3 % (11.7-14.2); RDW Standard Deviation 58.4 fL (35.1-46.3); Red Blood Cell Count 3.28 M/mm3 (3.80-5.20); White Blood Cell Count 9.56 K/mm3 (4.00-11.30)
[2024-12-27 15:43] LABS: Albumin, Blood 2.8 g/dL (3.4-5.0); Albumin/Globulin Ratio 0.7 (0.8-1.8); Bilirubin, Total 0.4 mg/dL (0.1-1.0); Bun/Creatinine Ratio 14.6 (12.0-20.0); Calcium, Blood 8.4 mg/dL (8.5-10.1); Creatinine, Blood 0.82 mg/dL (0.40-1.00); Globulin, Blood 3.9 g/dL (2.2-4.0); Potassium, Blood 3.7 mmol/L (3.5-5.5); Total Protein, Blood 6.7 g/dL (6.4-8.2)
[2024-12-27] MEDS ORDERED: Lactated Ringer's 1,000 ML IV ONE (16:20)
[2024-12-27 16:38] VITALS: BP 135/55
[2024-12-27] MEDS ORDERED: OXYC5 PO (16:45)
== END 2024-12-27 17:09 | disposition home or self-care (01) ==
LOC: ER 13:59
PROVIDERS: Physician Assistant
DX: K52.9 Noninfective gastroenteritis and colitis, unspecified (principal); K64.4 Residual hemorrhoidal skin tags; K64.8 Other hemorrhoids; Z86.73 Personal history of transient ischemic attack (TIA), and cerebral infarction without residual deficits; J44.9 Chronic obstructive pulmonary disease, unspecified; Z79.02 Long term (current) use of antithrombotics/antiplatelets; Z79.82 Long term (current) use of aspirin
CPT/HCPCS: 74177; 80053; 83690; 85025; 93005; 93010; 96360-59; 99284-25; J7120; Q9967

== ENCOUNTER → 2025-06-30 | Outpatient (CLI) | payer MEDICARE, OTHER ==
[~2025-06-30] MED LIST changes: +OXYC5 PO
== END | disposition home or self-care (01) ==
LOC: LAB SHORT 13:30 → LAB 13:30
DX: R30.0 Dysuria (principal)
CPT/HCPCS: 87086